=== PATIENT | male | born 1960 | race Caucasian/White ===

== ENCOUNTER 2024-08-16 22:15 | Inpatient (IN) | payer MEDICAID ==
[~2024-08-16] VITALS: Ht 167.6 cm; Wt 93.6 kg
[2024-08-16 22:31] VITALS: BP_SYST 125; PULSE 90; RESP 18; TEMP 98.4; O2SAT 98
[2024-08-16 22:55] LABS: BASOPHILS # (AUTO) 0.1 K/uL (0.0-0.2); BASOPHILS % (AUTO) 1.6 % (0.0-2.0); EOSINOPHILS # (AUTO) 0.2 K/uL (0.0-0.4); HEMATOCRIT 42.7 % (36-54); HEMOGLOBIN 14.8 g/dL (14.0-18.0); LYMPHOCYTES # (AUTO) 2.8 K/uL (1.0-5.5); LYMPHOCYTES % (AUTO) 36.5 % (20.5-51.5); MEAN CORPUSCULAR HEMOGLOBIN 28 pg (27-31); MEAN CORPUSCULAR HGB CONC 35 % (32-36); MEAN CORPUSCULAR VOLUME 82 fL (79.0-98.0); MONOCYTES # (AUTO) 0.6 K/uL (0.0-1.0); MONOCYTES % (AUTO) 7.8 % (1.7-9.3); NEUTROPHILS # (AUTO) 3.9 K/uL (1.8-7.7); NEUTROPHILS % (AUTO) 51.1 % (40.0-70.0); PLATELET COUNT (AUTO) 278 K/uL (130-430); RED BLOOD CELL COUNT(AUTO) 5.24 MIL/uL (4.2-6.2); RED CELL DISTRIBUTION WIDTH 12.2 % (9.0-15.0); WHITE BLOOD COUNT (AUTO) 7.7 K/uL (4.8-10.8)
[2024-08-16 23:08] LABS: ALANINE AMINOTRANSFERASE 19 U/L (12-78); ALBUMIN 3.5 g/dL (3.4-4.8); ANION GAP 9 (5-15); ASPARTATE AMINOTRANSFERASE 21 U/L (10-37); CALCIUM 9.1 mg/dL (8.4-11.0); CARBON DIOXIDE 28 mmol/L (23-29); CHLORIDE 107 mmol/L (98-107); CREATININE 1.07 mg/dL (0.55-1.30); GFR AFRICAN AMERICAN 90 mL/min (>90); GLUCOSE 134 mg/dL (74-106); SODIUM SERUM 144 mmol/L (136-145); TOTAL BILIRUBIN 0.4 mg/dL (0.0-1.0); TOTAL PROTEIN, SERUM 7.2 g/dL (6.4-8.3); UREA NITROGEN, BLOOD 15 mg/dL (8-21)
[2024-08-16 23:10] LABS: BILIRUBIN,DIRECT 0.1 mg/dL (0.0-0.3); GFR NON AFRICAN-AMERICAN 74 mL/min (>90)
[2024-08-16 23:31] LABS: BILIRUBIN,URINE NEGATIVE (NEGATIVE); BLOOD, URINE NEGATIVE (NEGATIVE); CLARITY/URINE CLEAR (CLEAR); COLOR,URINE YELLOW (YELLOW); GLUCOSE,URINE NEGATIVE (NEGATIVE); KETONES,URINE NEGATIVE (NEGATIVE); LEUKOCYTE ESTERASE ,URINE NEGATIVE (NEGATIVE); NITRITE, URINE NEGATIVE (NEGATIVE); PH,URINE 6.5 (5.0-8.0); PROTEIN URINE NEGATIVE (NEGATIVE); UROBILINOGEN,URINE 0.2 (0.2-1.0)
[2024-08-17] MEDS: KETOROLAC TROMETHAMINE 30 MG VIAL IVP ONE
[2024-08-17] MEDS: ATORVASTATIN 20 MG TABLET PO SCH (00:45)
[2024-08-17] MEDS: ASPIRIN 81 MG TAB.CHEW PO ONE (00:45)
[2024-08-17] MEDS: ASPIRIN 81 MG TAB.CHEW PO SCH (00:45)
[2024-08-17] MEDS: ATORVASTATIN 20 MG TABLET ONE (01:15)
[2024-08-17] MEDS ORDERED: ATOR-449 PO (01:24)
[2024-08-17 02:22] VITALS: BP_SYST 117; PULSE 68; RESP 18; TEMP 97.7; O2SAT 95
[2024-08-17] MEDS: HYDROcodone/ACETAMIN 10-325 MG TAB PO PRN (05:30)
[2024-08-17 08:00] VITALS: BP_SYST 114; PULSE 79; RESP 16; TEMP 97.3; O2SAT 97
[2024-08-17] MEDS ORDERED: IMMUNE GLOBULIN (IVIG) 400 ML IV PRN (09:00)
[2024-08-17] MEDS ORDERED: ATORVASTATIN 10 MG TABLET PO SCH (09:00)
[2024-08-17] MEDS: IMMUNE GLOBULIN (IVIG) 400 ML IV SCH (11:46)
[2024-08-17 12:00] VITALS: BP_SYST 123; BP_SYST 139; PULSE 76; PULSE 77; RESP 16; TEMP 97; TEMP 97.3; O2SAT 95; O2SAT 98
[2024-08-17 14:38] LABS: CHOLESTEROL 159 mg/dL (<200); HDL CHOLESTEROL 43 mg/dL (>45); TRIGLYCERIDES 111 mg/dL (30-150)
[2024-08-17 16:00] VITALS: BP_SYST 139; PULSE 76; RESP 16; TEMP 97; O2SAT 98
[2024-08-17] MEDS: LOSARTAN POTASSIUM 50 MG TABLET (COZAAR) PO ONE (16:01)
[2024-08-17 20:00] VITALS: BP_SYST 135; PULSE 72; RESP 16; TEMP 97.2; O2SAT 94
[2024-08-17] MEDS: GABAPENTIN 300 MG CAPSULE PO SCH (20:29)
[2024-08-17] MEDS: LOSARTAN POTASSIUM 50 MG TABLET (COZAAR) PO SCH (20:30)
[2024-08-17] MEDS: ONDANSETRON HCL 4 MG/2 ML VIAL IVP PRN (20:40)
[2024-08-17] MEDS: MORPHINE 2 MG/ML INJ. SYRINGE IVP PRN (22:35)
[2024-08-18] VITALS (7 sets, daily range): BP systolic 121–147; PULSE 69–85; RESP 18–20; TEMP 97.1–98.5; O2SAT 93–98
[2024-08-18] MEDS: ASPIRIN 81 MG TAB.CHEW PO SCH (08:41)
[2024-08-18] MEDS: ACETAMINOPHEN 325 MG TABLET PO PRN (20:43)
[2024-08-18] MEDS: HEPARIN SODIUM,PORCINE 5,000 UNITS/ML VIAL SUBCUT SCH (20:45)
[2024-08-18] MEDS: POLYETHYLENE GLYCOL 3350, 17 GM/ POWD.PACK PO ONE (20:47)
[2024-08-19] VITALS (7 sets, daily range): BP systolic 126–136; PULSE 78–92; RESP 16–18; TEMP 96.5–98.6; O2SAT 92–100
[2024-08-19] MEDS: POLYETHYLENE GLYCOL 3350, 17 GM/ POWD.PACK PO SCH ×2 (08:24→20:48)
[2024-08-19] MEDS ORDERED: IBUPROFEN 600 MG TABLET PO PRN (11:00)
[2024-08-19] MEDS: LORazepam 2 MG/ML VIAL IVP ONE (18:10)
[2024-08-19 19:07] LABS: BASOPHILS # (AUTO) 0.1 K/uL (0.0-0.2); BASOPHILS % (AUTO) 0.4 % (0.0-2.0); EOSINOPHILS % (AUTO) 0.1 % (0.0-4.0); HEMATOCRIT 40.5 % (36-54); LYMPHOCYTES # (AUTO) 0.7 K/uL (1.0-5.5); LYMPHOCYTES % (AUTO) 6.2 % (20.5-51.5); MEAN CORPUSCULAR HEMOGLOBIN 28 pg (27-31); MEAN CORPUSCULAR HGB CONC 35 % (32-36); MEAN CORPUSCULAR VOLUME 81 fL (79.0-98.0); MONOCYTES # (AUTO) 0.9 K/uL (0.0-1.0); MONOCYTES % (AUTO) 7.9 % (1.7-9.3); NEUTROPHILS % (AUTO) 85.4 % (40.0-70.0); PLATELET COUNT (AUTO) 236 K/uL (130-430); RED CELL DISTRIBUTION WIDTH 12.6 % (9.0-15.0); WHITE BLOOD COUNT (AUTO) 11.7 K/uL (4.8-10.8)
[2024-08-19 20:28] LABS: CALCIUM 8.6 mg/dL (8.4-11.0); CREATININE 0.89 mg/dL (0.55-1.30); POTASSIUM 4.2 mmol/L (3.5-5.1); TOTAL BILIRUBIN 0.8 mg/dL (0.0-1.0); TOTAL PROTEIN, SERUM 8.4 g/dL (6.4-8.3)
[2024-08-20 00:30] VITALS: BP_SYST 146; PULSE 85; RESP 16; TEMP 98.4; O2SAT 97
[2024-08-20] MEDS: MORPHINE 2 MG/ML INJ. SYRINGE IVP ONE (03:55)
[2024-08-20] MEDS: METOCLOPRAMIDE HCL 10 MG TABLET PO PRN (05:45)
[2024-08-20] MEDS: IBUPROFEN 600 MG TABLET PO ONE (05:46)
[2024-08-20 08:00] VITALS: BP_SYST 136; PULSE 86; RESP 22; TEMP 98.1; O2SAT 97
[2024-08-20] MEDS: PANTOPRAZOLE SODIUM 40 MG TAB PO SCH (08:29)
[2024-08-20] MEDS ORDERED: KETOROLAC TROMETHAMINE 30 MG VIAL IVP PRN (08:45)
[2024-08-20] MEDS ORDERED: PANTOPRAZOLE SODIUM 40 MG/VIAL (PROTONIX) IVP PRN (08:45)
[2024-08-20] MEDS: KETOROLAC TROMETHAMINE 30 MG VIAL IM PRN (09:30)
[2024-08-20 09:39] LABS: BASOPHILS % (AUTO) 0.4 % (0.0-2.0); EOSINOPHILS % (AUTO) 0.1 % (0.0-4.0); HEMATOCRIT 45.1 % (36-54); HEMOGLOBIN 15.4 g/dL (14.0-18.0); LYMPHOCYTES # (AUTO) 1.1 K/uL (1.0-5.5); LYMPHOCYTES % (AUTO) 10.7 % (20.5-51.5); MEAN CORPUSCULAR HEMOGLOBIN 28 pg (27-31); MEAN CORPUSCULAR HGB CONC 34 % (32-36); MEAN CORPUSCULAR VOLUME 82 fL (79.0-98.0); MONOCYTES # (AUTO) 0.8 K/uL (0.0-1.0); MONOCYTES % (AUTO) 7.5 % (1.7-9.3); NEUTROPHILS # (AUTO) 8.5 K/uL (1.8-7.7); NEUTROPHILS % (AUTO) 81.3 % (40.0-70.0); PLATELET COUNT (AUTO) 240 K/uL (130-430); RED BLOOD CELL COUNT(AUTO) 5.53 MIL/uL (4.2-6.2); RED CELL DISTRIBUTION WIDTH 12.2 % (9.0-15.0); WHITE BLOOD COUNT (AUTO) 10.4 K/uL (4.8-10.8)
[2024-08-20 10:15] LABS: ALBUMIN 3.4 g/dL (3.4-4.8); CALCIUM 9.3 mg/dL (8.4-11.0); CREATININE 0.83 mg/dL (0.55-1.30); POTASSIUM 4.2 mmol/L (3.5-5.1); TOTAL BILIRUBIN 1.1 mg/dL (0.0-1.0); TOTAL PROTEIN, SERUM 9.6 g/dL (6.4-8.3)
[2024-08-20] MEDS: LORazepam 2 MG/ML VIAL IVP PRN (11:09)
[2024-08-20 12:57] VITALS: BP_SYST 146; PULSE 79; RESP 22; TEMP 97.5; O2SAT 95
[2024-08-20 13:25] LABS: BLOOD GAS HCO3 25.9 mmol/L (21.0-28.0); BLOOD GAS PCO2 39.8 mmHg (35.0-48.0); BLOOD GAS PH 7.432 (7.350-7.450)
[2024-08-20 13:26] LABS: ABG O2 SAT% ESTIMATE 95.2 % (94.0-98.0); ALLEN'S TEST POSITIVE (P); BLOOD GAS BASE EXCESS 1.6 mmol/L (-2.0-3.0); BLOOD GAS PO2 73.3 mmHg (83.0-108.0)
[2024-08-20] MEDS ORDERED: MORPHINE 2 MG/ML INJ. SYRINGE IVP PRN (16:15)
[2024-08-20 16:44] VITALS: BP_SYST 136; PULSE 76; RESP 18; TEMP 98; O2SAT 98
[2024-08-20] MEDS: HYDROmorphone 2 MG TAB PO PRN (17:24)
[2024-08-20 17:50] LABS: FREE T4 (FREE THYROXINE) 1.3 ng/dl (0.8-1.5); THYROID STIMULATING HORMONE 1.43 uIu/mL (0.36-3.74)
[2024-08-20 18:32] LABS: INR 1.1 (0.80-1.20); PROTHROMBIN TIME 11.3 SECS (9.5-12.5)
[2024-08-20 20:00] VITALS: BP_SYST 123; PULSE 79; RESP 18; TEMP 98.4; O2SAT 95
[2024-08-20] MEDS ORDERED: NALOXONE HCL 0.4 MG/ML AMP (NARCAN) IVP PRN (20:15)
[2024-08-20] MEDS: HYDROmorphone 1 MG/ML INJ. CARTRIDGE IM PRN (20:24)
[2024-08-20] MEDS ORDERED: PREGABALIN 25 MG CAPSULE (LYRICA) PO SCH (21:00)
[2024-08-20] MEDS: HEPARIN SODIUM,PORCINE 5,000 UNITS/ML VIAL IV ONE (21:22)
[2024-08-20] MEDS: PREGABALIN 25 MG CAPSULE (LYRICA) PO SCH (21:30)
[2024-08-21] VITALS (7 sets, daily range): BP systolic 87–149; PULSE 66–133; RESP 16–20; TEMP 96.3–98.5; O2SAT 91–98
[2024-08-21] MEDS ORDERED: NALOXONE HCL 0.4 MG/ML AMP (NARCAN) IVP PRN
[2024-08-21] MEDS: HYDROmorphone 1 MG/ML INJ. CARTRIDGE IVP PRN (00:05)
[2024-08-21] MEDS: KETOROLAC TROMETHAMINE 30 MG VIAL IVP PRN (01:36)
[2024-08-21] MEDS: PANTOPRAZOLE SODIUM 40 MG/VIAL (PROTONIX) IVP PRN (01:36)
[2024-08-21] MEDS: MINERAL OIL 133 ML ENEMA RC ONE (06:37)
[2024-08-21 10:31] LABS: POTASSIUM 4.4 mmol/L (3.5-5.1)
[2024-08-21 10:32] LABS: ALBUMIN 2.9 g/dL (3.4-4.8); CALCIUM 9.5 mg/dL (8.4-11.0); CREATININE 0.94 mg/dL (0.55-1.30); TOTAL BILIRUBIN 1.5 mg/dL (0.0-1.0); TOTAL PROTEIN, SERUM 9.4 g/dL (6.4-8.3)
[2024-08-21 10:33] LABS: BASOPHILS % (AUTO) 0.2 % (0.0-2.0); EOSINOPHILS % (AUTO) 0.1 % (0.0-4.0); HEMATOCRIT 42.3 % (36-54); HEMOGLOBIN 14.5 g/dL (14.0-18.0); LYMPHOCYTES # (AUTO) 0.8 K/uL (1.0-5.5); LYMPHOCYTES % (AUTO) 6.3 % (20.5-51.5); MEAN CORPUSCULAR HEMOGLOBIN 28 pg (27-31); MEAN CORPUSCULAR HGB CONC 34 % (32-36); MEAN CORPUSCULAR VOLUME 81 fL (79.0-98.0); MONOCYTES % (AUTO) 8.1 % (1.7-9.3); NEUTROPHILS # (AUTO) 10.6 K/uL (1.8-7.7); NEUTROPHILS % (AUTO) 85.3 % (40.0-70.0); PLATELET COUNT (AUTO) 263 K/uL (130-430); RED BLOOD CELL COUNT(AUTO) 5.22 MIL/uL (4.2-6.2); RED CELL DISTRIBUTION WIDTH 12.3 % (9.0-15.0); WHITE BLOOD COUNT (AUTO) 12.5 K/uL (4.8-10.8)
[2024-08-21] MEDS: NS IV ONE (11:13)
[2024-08-21] MEDS: CALCIUM GLUCONATE IV ONE (11:13)
[2024-08-21] MEDS: MINERAL OIL 30 ML UDC PO ONE (11:15)
[2024-08-21] MEDS ORDERED: OLANZapine 10 MG TABLET PO PRN (11:45)
[2024-08-21] MEDS: ALBUMIN HUMAN 5% 3,000 ML IV ONE (12:03)
[2024-08-21] MEDS: hydrALAZINE HCL 20 MG/ML VIAL IVP PRN (13:07)
[2024-08-21] MEDS: ENOXAPARIN SODIUM 40 MG/0.4 ML SYRINGE SUBCUT ONE (18:05)
[2024-08-21] MEDS ORDERED: NACL 0.9% 1,000 ML IV ONE (22:30)
[2024-08-21] MEDS: NACL 0.9% 1,000 ML IV ONE (22:55)
[2024-08-21] MEDS: NACL 0.9% 1,000 ML IV SCH (23:54)
[2024-08-22] VITALS (7 sets, daily range): BP systolic 125–147; PULSE 83–127; RESP 16–19; TEMP 97.5–98.3; O2SAT 91–97
[2024-08-22 01:28] LABS: BASOPHILS % (AUTO) 0.1 % (0.0-2.0); HEMATOCRIT 35.6 % (36-54); HEMOGLOBIN 12.3 g/dL (14.0-18.0); LYMPHOCYTES # (AUTO) 1.2 K/uL (1.0-5.5); LYMPHOCYTES % (AUTO) 5.6 % (20.5-51.5); MEAN CORPUSCULAR HEMOGLOBIN 28 pg (27-31); MEAN CORPUSCULAR HGB CONC 35 % (32-36); MEAN CORPUSCULAR VOLUME 81 fL (79.0-98.0); MONOCYTES # (AUTO) 1.4 K/uL (0.0-1.0); MONOCYTES % (AUTO) 6.6 % (1.7-9.3); NEUTROPHILS % (AUTO) 87.7 % (40.0-70.0); PLATELET COUNT (AUTO) 290 K/uL (130-430); RED BLOOD CELL COUNT(AUTO) 4.39 MIL/uL (4.2-6.2); RED CELL DISTRIBUTION WIDTH 12.3 % (9.0-15.0); WHITE BLOOD COUNT (AUTO) 21.7 K/uL (4.8-10.8)
[2024-08-22 01:36] LABS: ALBUMIN 3.5 g/dL (3.4-4.8); CALCIUM 8.7 mg/dL (8.4-11.0); CREATININE 1.51 mg/dL (0.55-1.30); POTASSIUM 4.8 mmol/L (3.5-5.1); TOTAL BILIRUBIN 1.3 mg/dL (0.0-1.0); TOTAL PROTEIN, SERUM 6.4 g/dL (6.4-8.3)
[2024-08-22] MEDS ORDERED: ALBUMIN HUMAN 5% 250 ML IV SCH (09:00)
[2024-08-22] MEDS ORDERED: CALCIUM GLUCONATE 1 GM/10 ML VIAL IVP SCH ×2 (09:00)
[2024-08-22] MEDS: ALBUMIN HUMAN 5% 3,000 ML IV SCH (09:00)
[2024-08-22] MEDS: NS IV SCH (09:00)
[2024-08-22] MEDS ORDERED: CALCIUM GLUCONATE 1 GM/10 ML VIAL IVP ONE (09:00)
[2024-08-22] MEDS: CALCIUM GLUCONATE IV SCH (09:00)
[2024-08-22] MEDS ORDERED: ALBUMIN HUMAN 5% 1,000 ML IV SCH (09:00)
[2024-08-22] MEDS: ENOXAPARIN SODIUM 40 MG/0.4 ML SYRINGE SUBCUT SCH (09:41)
[2024-08-22 12:11] LABS: BILIRUBIN,URINE NEGATIVE (NEGATIVE); CLARITY/URINE CLEAR (CLEAR); COLOR,URINE YELLOW (YELLOW); GLUCOSE,URINE NEGATIVE (NEGATIVE); KETONES,URINE NEGATIVE (NEGATIVE); LEUKOCYTE ESTERASE ,URINE 1+ (NEGATIVE); NITRITE, URINE POSITIVE (NEGATIVE); PH,URINE 5.5 (5.0-8.0); PROTEIN URINE TRACE (NEGATIVE)
[2024-08-22] MEDS ORDERED: MORPHINE 2 MG/ML INJ. SYRINGE IVP PRN (12:15)
[2024-08-22 12:18] LABS: BLOOD, URINE TRACE (NEGATIVE)
[2024-08-22 12:35] LABS: BACTERIA,URINE MODERATE /HPF (None Seen); HYALINE CASTS, URINE 0-1 /LPF (None Seen)
[2024-08-22 12:46] LABS: BARBITURATE, URINE NEGATIVE (NEG <=200); BENZODIAZEPINE, URINE POSITIVE (NEG <=150); CANNABINOID, URINE NEGATIVE (NEG <=50); COCAINE, URINE NEGATIVE (NEG <=150); METHAMPHETAMINES SCREEN,URINE NEGATIVE (NEG <=500); OPIATE, URINE POSITIVE (NEG <=100); PHENCYCLIDINE SCREEN,URINE NEGATIVE (NEG <=25); URINE AMPHETAMINE NEGATIVE (NEG <=500); URINE METHADONE NEGATIVE (NEG <=200); URINE OXYCODONE SCREEN NEGATIVE (NEG <=100)
[2024-08-22 12:47] LABS: UR TRICYCLIC ANTIDEPRESSANTS NEGATIVE (NEG <=300)
[2024-08-22] MEDS ORDERED: HYDROmorphone 1 MG/ML INJ. CARTRIDGE IM PRN (16:45)
[2024-08-22] MEDS ORDERED: NALOXONE HCL 0.4 MG/ML AMP (NARCAN) IVP PRN (16:45)
[2024-08-22] MEDS: HYDROmorphone 1 MG/ML INJ. CARTRIDGE IV PRN (17:21)
[2024-08-22] MEDS: SODIUM PHOSPHATE,MONO-DIBASIC 133 ML ENEMA RC ONE (17:21)
[2024-08-22] MEDS: GABAPENTIN 400 MG CAPSULE PO SCH (20:14)
[2024-08-22 23:06] LABS: RA LATEX TURBID 14.2 IU/mL (<14.0)
[2024-08-23] VITALS: BP_SYST 109; PULSE 130; RESP 18; TEMP 98.2; O2SAT 92
[2024-08-23 08:00] VITALS: BP_SYST 159; PULSE 124; RESP 20; TEMP 98.4; O2SAT 91; O2SAT 93
[2024-08-23] MEDS: CALCIUM GLUCONATE IV SCH (09:00)
[2024-08-23] MEDS: NS IV SCH (09:00)
[2024-08-23 11:49] LABS: BASOPHILS # (AUTO) 0.1 K/uL (0.0-0.2); BASOPHILS % (AUTO) 0.4 % (0.0-2.0); EOSINOPHILS % (AUTO) 0.3 % (0.0-4.0); HEMOGLOBIN 9.5 g/dL (14.0-18.0); LYMPHOCYTES # (AUTO) 1.2 K/uL (1.0-5.5)
[2024-08-23 11:55] LABS: HEMATOCRIT 27.6 % (36-54); LYMPHOCYTES % (AUTO) 7.7 % (20.5-51.5); MEAN CORPUSCULAR HEMOGLOBIN 28 pg (27-31); MEAN CORPUSCULAR HGB CONC 35 % (32-36); MEAN CORPUSCULAR VOLUME 81 fL (79.0-98.0); MONOCYTES % (AUTO) 12.6 % (1.7-9.3); NEUTROPHILS # (AUTO) 12.3 K/uL (1.8-7.7); PLATELET COUNT (AUTO) 291 K/uL (130-430); RED CELL DISTRIBUTION WIDTH 12.4 % (9.0-15.0); WHITE BLOOD COUNT (AUTO) 15.6 K/uL (4.8-10.8)
[2024-08-23 12:02] VITALS: BP_SYST 132; PULSE 119; RESP 25; TEMP 98; O2SAT 95
[2024-08-23 12:19] LABS: ALBUMIN 3.2 g/dL (3.4-4.8); CALCIUM 8.4 mg/dL (8.4-11.0); CREATININE 0.85 mg/dL (0.55-1.30); TOTAL BILIRUBIN 0.7 mg/dL (0.0-1.0); TOTAL PROTEIN, SERUM 6.7 g/dL (6.4-8.3)
[2024-08-23] MEDS: ALBUMIN HUMAN 5% 3,000 ML IV SCH (12:40)
[2024-08-23] MEDS: KETOROLAC TROMETHAMINE 30 MG VIAL IVP PRN (14:15)
[2024-08-23 16:24] VITALS: BP_SYST 151; PULSE 114; RESP 24; TEMP 98.1; O2SAT 97
[2024-08-23 17:47] LABS: ALBUMIN 4.2 g/dL (3.4-4.8); CALCIUM 8.3 mg/dL (8.4-11.0); CREATININE 0.88 mg/dL (0.55-1.30)
[2024-08-23 20:00] VITALS: BP_SYST 125; PULSE 119; RESP 20; TEMP 96.8; O2SAT 94
[2024-08-24] VITALS (28 sets, daily range): BP systolic 121–160; PULSE 111–132; RESP 13–32; TEMP 96.6–99.1; O2SAT 94–100
[2024-08-24 07:36] LABS: BASOPHILS % (AUTO) 0.1 % (0.0-2.0); EOSINOPHILS % (AUTO) 0.2 % (0.0-4.0); HEMATOCRIT 27.5 % (36-54); HEMOGLOBIN 9.5 g/dL (14.0-18.0); LYMPHOCYTES # (AUTO) 1.1 K/uL (1.0-5.5); LYMPHOCYTES % (AUTO) 8.2 % (20.5-51.5); MEAN CORPUSCULAR HEMOGLOBIN 28 pg (27-31); MEAN CORPUSCULAR HGB CONC 35 % (32-36); MEAN CORPUSCULAR VOLUME 81 fL (79.0-98.0); MONOCYTES # (AUTO) 1.5 K/uL (0.0-1.0); MONOCYTES % (AUTO) 10.5 % (1.7-9.3); NEUTROPHILS # (AUTO) 11.3 K/uL (1.8-7.7); PLATELET COUNT (AUTO) 257 K/uL (130-430); RED CELL DISTRIBUTION WIDTH 12.6 % (9.0-15.0)
[2024-08-24 07:56] LABS: ALBUMIN 3.7 g/dL (3.4-4.8); CALCIUM 8.7 mg/dL (8.4-11.0); CREATININE 0.78 mg/dL (0.55-1.30); POTASSIUM 3.8 mmol/L (3.5-5.1); TOTAL BILIRUBIN 1.1 mg/dL (0.0-1.0); TOTAL PROTEIN, SERUM 5.8 g/dL (6.4-8.3)
[2024-08-24 10:24] LABS: ABG O2 SAT% ESTIMATE 97.7 % (94.0-98.0); BLOOD GAS BASE EXCESS 1.6 mmol/L (-2.0-3.0); BLOOD GAS HCO3 24.4 mmol/L (21.0-28.0); BLOOD GAS PCO2 31.8 mmHg (35.0-48.0); BLOOD GAS PH 7.503 (7.350-7.450); BLOOD GAS PO2 91.5 mmHg (83.0-108.0)
[2024-08-24 10:31] LABS: ALLEN'S TEST POSITIVE (P)
[2024-08-24 11:44] LABS: BASOPHILS % (AUTO) 0.2 % (0.0-2.0); EOSINOPHILS % (AUTO) 0.3 % (0.0-4.0); HEMATOCRIT 27.1 % (36-54); HEMOGLOBIN 9.3 g/dL (14.0-18.0); LYMPHOCYTES # (AUTO) 1.6 K/uL (1.0-5.5); LYMPHOCYTES % (AUTO) 11.1 % (20.5-51.5); MEAN CORPUSCULAR HEMOGLOBIN 28 pg (27-31); MEAN CORPUSCULAR HGB CONC 34 % (32-36); MEAN CORPUSCULAR VOLUME 81 fL (79.0-98.0); MONOCYTES # (AUTO) 1.4 K/uL (0.0-1.0); MONOCYTES % (AUTO) 9.9 % (1.7-9.3); NEUTROPHILS # (AUTO) 11.1 K/uL (1.8-7.7); NEUTROPHILS % (AUTO) 78.5 % (40.0-70.0); PLATELET COUNT (AUTO) 263 K/uL (130-430); RED BLOOD CELL COUNT(AUTO) 3.36 MIL/uL (4.2-6.2); RED CELL DISTRIBUTION WIDTH 12.5 % (9.0-15.0); WHITE BLOOD COUNT (AUTO) 14.2 K/uL (4.8-10.8)
[2024-08-24] MEDS: OXYCODONE/ACETAMINOPHEN *10*mg/325 mg TABLET PO PRN (13:27)
[2024-08-24] MEDS ORDERED: iohexoL 350 mgI/mL, 100 ML INFUS..BTL IV ONE (14:16)
[2024-08-24] MEDS: PIPERACILLIN/TAZO 4.5 GM in NS 100 ML IV SCH (21:33)
[2024-08-24] MEDS: MELATONIN 5 MG TABLET PO PRN (23:20)
[2024-08-25] VITALS (35 sets, daily range): BP systolic 124–178; PULSE 104–126; RESP 14–33; TEMP 96.1–100.5; O2SAT 95–100
[2024-08-25 06:24] LABS: BASOPHILS # (AUTO) 0.1 K/uL (0.0-0.2); BASOPHILS % (AUTO) 0.5 % (0.0-2.0); EOSINOPHILS % (AUTO) 0.4 % (0.0-4.0); HEMATOCRIT 27.5 % (36-54); HEMOGLOBIN 9.3 g/dL (14.0-18.0); LYMPHOCYTES # (AUTO) 1.9 K/uL (1.0-5.5); LYMPHOCYTES % (AUTO) 15.9 % (20.5-51.5); MEAN CORPUSCULAR HEMOGLOBIN 27 pg (27-31); MEAN CORPUSCULAR HGB CONC 34 % (32-36); MEAN CORPUSCULAR VOLUME 82 fL (79.0-98.0); MONOCYTES # (AUTO) 1.4 K/uL (0.0-1.0); MONOCYTES % (AUTO) 11.5 % (1.7-9.3); NEUTROPHILS # (AUTO) 8.7 K/uL (1.8-7.7); NEUTROPHILS % (AUTO) 71.7 % (40.0-70.0); PLATELET COUNT (AUTO) 281 K/uL (130-430); RED BLOOD CELL COUNT(AUTO) 3.38 MIL/uL (4.2-6.2); RED CELL DISTRIBUTION WIDTH 12.6 % (9.0-15.0); WHITE BLOOD COUNT (AUTO) 12.2 K/uL (4.8-10.8)
[2024-08-25 06:50] LABS: ALBUMIN 3.3 g/dL (3.4-4.8); CALCIUM 8.8 mg/dL (8.4-11.0); CREATININE 0.81 mg/dL (0.55-1.30); POTASSIUM 3.4 mmol/L (3.5-5.1); TOTAL BILIRUBIN 1.4 mg/dL (0.0-1.0)
[2024-08-25] MEDS: NACL 0.9% 1,000 ML IV SCH (08:00)
[2024-08-25 10:31] LABS: ABG O2 SAT% ESTIMATE 94.9 % (94.0-98.0); ALLEN'S TEST POSITIVE (P); BLOOD GAS HCO3 26.5 mmol/L (21.0-28.0); BLOOD GAS PCO2 32.7 mmHg (35.0-48.0); BLOOD GAS PH 7.527 (7.350-7.450); BLOOD GAS PO2 65.1 mmHg (83.0-108.0)
[2024-08-25] MEDS: metroNIDAZOLE 500 mg/NS 100 ML IV SCH (13:22)
[2024-08-25] MEDS: 0.45% NACL 1,000 ML IV SCH (15:54)
[2024-08-25] MEDS: CALCIUM GLUCONATE IV ONE (21:20)
[2024-08-25] MEDS: NS IV ONE (21:20)
[2024-08-25] MEDS: ACETAMINOPHEN 650 MG/20.3 ML UDC NG PRN (21:23)
[2024-08-26] VITALS (32 sets, daily range): BP systolic 130–172; PULSE 84–116; RESP 12–31; TEMP 98.6–99.9; O2SAT 92–99
[2024-08-26] MEDS: METHYLPREDNISOLONE SOD SUCC IV SCH
[2024-08-26 06:57] LABS: BASOPHILS % (AUTO) 0.3 % (0.0-2.0); EOSINOPHILS % (AUTO) 0.2 % (0.0-4.0); HEMOGLOBIN 8.8 g/dL (14.0-18.0); LYMPHOCYTES # (AUTO) 0.8 K/uL (1.0-5.5); LYMPHOCYTES % (AUTO) 8.1 % (20.5-51.5); MEAN CORPUSCULAR HEMOGLOBIN 28 pg (27-31); MEAN CORPUSCULAR HGB CONC 34 % (32-36); MEAN CORPUSCULAR VOLUME 82 fL (79.0-98.0); MONOCYTES # (AUTO) 0.3 K/uL (0.0-1.0); MONOCYTES % (AUTO) 3.4 % (1.7-9.3); NEUTROPHILS # (AUTO) 8.7 K/uL (1.8-7.7); PLATELET COUNT (AUTO) 263 K/uL (130-430); RED BLOOD CELL COUNT(AUTO) 3.16 MIL/uL (4.2-6.2); RED CELL DISTRIBUTION WIDTH 12.7 % (9.0-15.0); WHITE BLOOD COUNT (AUTO) 9.9 K/uL (4.8-10.8)
[2024-08-26 07:44] LABS: ALBUMIN 3.2 g/dL (3.4-4.8); CALCIUM 8.6 mg/dL (8.4-11.0); CREATININE 0.76 mg/dL (0.55-1.30); POTASSIUM 3.8 mmol/L (3.5-5.1)
[2024-08-26] MEDS: COMMUNICATION ORDER XX ONE (09:29)
[2024-08-26] MEDS: ALTEPLASE 2 MG VIAL MC ONE (12:25)
[2024-08-26] MEDS: METOPROLOL TARTRATE 25 MG TABLET PO ONE (14:21)
[2024-08-26] MEDS: CALCIUM GLUCONATE IV SCH (14:38)
[2024-08-26] MEDS: NS IV SCH ×2 (14:38)
[2024-08-26] MEDS: HEPARIN SODIUM, PORCINE 10,000 UNITS/ 10 ML VIAL MC ONE (16:00)
[2024-08-26] MEDS: METOPROLOL TARTRATE 25 MG TABLET PO SCH (21:55)
[2024-08-27] VITALS (33 sets, daily range): BP systolic 127–161; PULSE 74–101; RESP 10–28; TEMP 98.1–99.1; O2SAT 93–99
[2024-08-27 06:43] LABS: BASOPHILS % (AUTO) 0.3 % (0.0-2.0); EOSINOPHILS % (AUTO) 0.2 % (0.0-4.0); HEMATOCRIT 25.9 % (36-54); HEMOGLOBIN 8.7 g/dL (14.0-18.0); LYMPHOCYTES # (AUTO) 2.3 K/uL (1.0-5.5); LYMPHOCYTES % (AUTO) 19.5 % (20.5-51.5); MEAN CORPUSCULAR HEMOGLOBIN 28 pg (27-31); MEAN CORPUSCULAR HGB CONC 34 % (32-36); MEAN CORPUSCULAR VOLUME 82 fL (79.0-98.0); MONOCYTES # (AUTO) 1.2 K/uL (0.0-1.0); MONOCYTES % (AUTO) 9.8 % (1.7-9.3); NEUTROPHILS # (AUTO) 8.3 K/uL (1.8-7.7); NEUTROPHILS % (AUTO) 70.2 % (40.0-70.0); PLATELET COUNT (AUTO) 284 K/uL (130-430); RED BLOOD CELL COUNT(AUTO) 3.15 MIL/uL (4.2-6.2); RED CELL DISTRIBUTION WIDTH 12.6 % (9.0-15.0); WHITE BLOOD COUNT (AUTO) 11.9 K/uL (4.8-10.8)
[2024-08-27 07:26] LABS: ERYTHROCYTE SEDIMENTATION RATE < 1 MM/HR (0-15)
[2024-08-27 07:46] LABS: CALCIUM 8.5 mg/dL (8.4-11.0); CREATININE 0.7 mg/dL (0.55-1.30); POTASSIUM 3.4 mmol/L (3.5-5.1)
[2024-08-27] MEDS: HYDROcodone/ACETAMIN 10-325 MG TAB PO PRN (09:05)
[2024-08-27] MEDS: ENOXAPARIN SODIUM 40 MG/0.4 ML SYRINGE SUBCUT SCH (09:49)
[2024-08-27] MEDS: POTASSIUM CHLORIDE 20 MEQ/PKT PACKET PO ONE (10:48)
[2024-08-27] MEDS: KETOROLAC TROMETHAMINE 15 MG VIAL IM PRN ×2 (11:08→16:05)
[2024-08-27 13:07] LABS: ANTI-DNA(DS) AB, QN <1 IU/mL (0-9); ANTI-NUCLEAR AB DIRECT Negative (Negative); ANTISCLERODERMA-70 AB <0.2 AI (0.0-0.9); SMITH ABS <0.2 AI (0.0-0.9)
[2024-08-27 14:06] LABS: WEST NILE VIRUS, IgG, SERUM Negative (Negative)
[2024-08-27] MEDS: LIDOCAINE PATCH 5% 1 EA TP ONE (16:05)
[2024-08-27] MEDS: HYDROmorphone 2 MG/ML VIAL IVP PRN (18:31)
[2024-08-27] MEDS: HYDROmorphone 2 MG/ML VIAL ONE (18:34)
[2024-08-27] MEDS: METOPROLOL SUCCINATE 50 MG TAB.SR.24H (TOPROL XL) PO ONE (18:34)
[2024-08-28] VITALS (31 sets, daily range): BP systolic 117–161; PULSE 15–92; RESP 11–30; TEMP 97.6–98.9; O2SAT 13–98
[2024-08-28 01:06] LABS: THYROID PEROXIDASE (TPO) AB 15 IU/mL (0-34)
[2024-08-28 02:06] LABS: COMPLEMENT C4, SERUM 16 mg/dL (12-38)
[2024-08-28 06:52] LABS: PROTHROMBIN TIME 10.8 SECS (9.5-12.5)
[2024-08-28 06:59] LABS: BASOPHILS % (AUTO) 0.4 % (0.0-2.0); EOSINOPHILS # (AUTO) 0.2 K/uL (0.0-0.4); EOSINOPHILS % (AUTO) 1.2 % (0.0-4.0); HEMATOCRIT 28.3 % (36-54); HEMOGLOBIN 9.3 g/dL (14.0-18.0); LYMPHOCYTES # (AUTO) 2.1 K/uL (1.0-5.5); LYMPHOCYTES % (AUTO) 16.7 % (20.5-51.5); MEAN CORPUSCULAR HEMOGLOBIN 27 pg (27-31); MEAN CORPUSCULAR HGB CONC 33 % (32-36); MEAN CORPUSCULAR VOLUME 83 fL (79.0-98.0); MONOCYTES # (AUTO) 1.4 K/uL (0.0-1.0); NEUTROPHILS % (AUTO) 70.7 % (40.0-70.0); PLATELET COUNT (AUTO) 309 K/uL (130-430); RED BLOOD CELL COUNT(AUTO) 3.42 MIL/uL (4.2-6.2); RED CELL DISTRIBUTION WIDTH 12.8 % (9.0-15.0); WHITE BLOOD COUNT (AUTO) 12.7 K/uL (4.8-10.8)
[2024-08-28 07:19] LABS: ALBUMIN 3.4 g/dL (3.4-4.8); CALCIUM 8.2 mg/dL (8.4-11.0); CREATININE 0.68 mg/dL (0.55-1.30); POTASSIUM 4.2 mmol/L (3.5-5.1); TOTAL BILIRUBIN 0.8 mg/dL (0.0-1.0); TOTAL PROTEIN, SERUM 5.3 g/dL (6.4-8.3)
[2024-08-28] MEDS: LIDOCAINE PATCH 5% 1 EA TP SCH (09:00)
[2024-08-28] MEDS: METOPROLOL SUCCINATE 50 MG TAB.SR.24H (TOPROL XL) PO SCH (09:06)
[2024-08-28] MEDS: ALBUMIN HUMAN 5% 1,000 ML IV SCH (09:11)
[2024-08-28] MEDS ORDERED: COMMUNICATION ORDER XX ONE (10:45)
[2024-08-28] MEDS ORDERED: CALCIUM GLUCONATE 1 GM/10 ML VIAL IVP ONE (10:45)
[2024-08-28] MEDS: ALBUMIN HUMAN 5% 3,000 ML IV ONE (12:24)
[2024-08-28] MEDS: CALCIUM GLUCONATE IV ONE (12:26)
[2024-08-28] MEDS: NS IV ONE (12:26)
[2024-08-28] MEDS ORDERED: ALPRAZolam 0.25 MG TABLET PO PRN (13:15)
[2024-08-28] MEDS ORDERED: DOCUSATE SODIUM 100 MG CAPSULE PO PRN (20:00)
[2024-08-28 20:17] LABS: ALBUMIN 4.4 g/dL (3.4-4.8); CALCIUM 8.3 mg/dL (8.4-11.0); CREATININE 0.74 mg/dL (0.55-1.30); POTASSIUM 4.3 mmol/L (3.5-5.1); TOTAL BILIRUBIN 1.2 mg/dL (0.0-1.0); TOTAL PROTEIN, SERUM 5.4 g/dL (6.4-8.3)
[2024-08-28] MEDS: DOCUSATE SODIUM 100 MG CAPSULE PO PRN (20:20)
[2024-08-28 20:21] LABS: BASOPHILS % (AUTO) 0.2 % (0.0-2.0); EOSINOPHILS # (AUTO) 0.2 K/uL (0.0-0.4); EOSINOPHILS % (AUTO) 1.3 % (0.0-4.0); HEMATOCRIT 30.4 % (36-54); HEMOGLOBIN 10.5 g/dL (14.0-18.0); LYMPHOCYTES # (AUTO) 2.1 K/uL (1.0-5.5); LYMPHOCYTES % (AUTO) 12.9 % (20.5-51.5); MEAN CORPUSCULAR HEMOGLOBIN 29 pg (27-31); MEAN CORPUSCULAR HGB CONC 35 % (32-36); MEAN CORPUSCULAR VOLUME 82 fL (79.0-98.0); MONOCYTES # (AUTO) 1.4 K/uL (0.0-1.0); MONOCYTES % (AUTO) 8.8 % (1.7-9.3); NEUTROPHILS # (AUTO) 12.4 K/uL (1.8-7.7); NEUTROPHILS % (AUTO) 76.8 % (40.0-70.0); PLATELET COUNT (AUTO) 304 K/uL (130-430); RED CELL DISTRIBUTION WIDTH 12.6 % (9.0-15.0); WHITE BLOOD COUNT (AUTO) 16.2 K/uL (4.8-10.8)
[2024-08-28 20:38] LABS: INR 1.2 (0.80-1.20); PROTHROMBIN TIME 12.3 SECS (9.5-12.5)
[2024-08-29] VITALS (29 sets, daily range): BP systolic 125–166; PULSE 83–104; RESP 12–28; TEMP 98.2–98.7; O2SAT 93–100
[2024-08-29] MEDS: cefTRIAXone 1 GM in D5W 50 ML IV SCH (08:53)
[2024-08-29] MEDS ORDERED: NALOXONE HCL 0.4 MG/ML AMP (NARCAN) IVP PRN (10:00)
[2024-08-29] MEDS: MULTIVITAMINS TAB 1 TABLET PO ONE (15:15)
[2024-08-29] MEDS: HYDROmorphone 1 MG/ML INJ. CARTRIDGE IVP PRN (15:56)
[2024-08-29 16:06] LABS: ANTI-MITOCHONDRIAL AB <20.0 Units (0.0-20.0); ANTI-SMOOTH MUSCLE AB 6 Units (0-19)
[2024-08-30] VITALS (27 sets, daily range): BP systolic 100–146; PULSE 80–109; RESP 12–36; TEMP 98.4–99.8; O2SAT 86–100
[2024-08-30 07:05] LABS: BASOPHILS # (AUTO) 0.1 K/uL (0.0-0.2); BASOPHILS % (AUTO) 0.3 % (0.0-2.0); EOSINOPHILS # (AUTO) 0.3 K/uL (0.0-0.4); EOSINOPHILS % (AUTO) 1.7 % (0.0-4.0); HEMATOCRIT 32.6 % (36-54); HEMOGLOBIN 10.8 g/dL (14.0-18.0); LYMPHOCYTES # (AUTO) 2.7 K/uL (1.0-5.5); LYMPHOCYTES % (AUTO) 14.6 % (20.5-51.5); MEAN CORPUSCULAR HEMOGLOBIN 28 pg (27-31); MEAN CORPUSCULAR HGB CONC 33 % (32-36); MEAN CORPUSCULAR VOLUME 83 fL (79.0-98.0); MONOCYTES # (AUTO) 1.4 K/uL (0.0-1.0); MONOCYTES % (AUTO) 7.9 % (1.7-9.3); NEUTROPHILS # (AUTO) 13.9 K/uL (1.8-7.7); NEUTROPHILS % (AUTO) 75.5 % (40.0-70.0); PLATELET COUNT (AUTO) 343 K/uL (130-430); RED BLOOD CELL COUNT(AUTO) 3.95 MIL/uL (4.2-6.2); RED CELL DISTRIBUTION WIDTH 12.8 % (9.0-15.0); WHITE BLOOD COUNT (AUTO) 18.4 K/uL (4.8-10.8)
[2024-08-30 07:38] LABS: ALBUMIN 3.8 g/dL (3.4-4.8); CALCIUM 8.8 mg/dL (8.4-11.0); CREATININE 0.64 mg/dL (0.55-1.30); POTASSIUM 4.4 mmol/L (3.5-5.1); TOTAL BILIRUBIN 1.2 mg/dL (0.0-1.0); TOTAL PROTEIN, SERUM 5.9 g/dL (6.4-8.3)
[2024-08-30] MEDS: MULTIVITAMINS TAB 1 TABLET PO SCH (09:01)
[2024-08-30] MEDS: COMMUNICATION ORDER XX ONE (09:15)
[2024-08-30] MEDS: ALBUMIN HUMAN 5% 250 ML IV ONE ×2 (10:36→14:45)
[2024-08-30] MEDS ORDERED: CALCIUM GLUCONATE 1 GM/10 ML VIAL IVP ONE (11:00)
[2024-08-30] MEDS: NS IV ONE (11:51)
[2024-08-30] MEDS: CALCIUM GLUCONATE IV ONE (11:51)
[2024-08-30] MEDS ORDERED: ALBUMIN HUMAN 5% 250 ML IV STA (14:30)
[2024-08-30] MEDS: CALCIUM CARBONATE 500 MG/ TAB.CHEW PO ONE (14:30)
[2024-08-30] MEDS: CALCIUM GLUC 1 GM/100ML-NACL 100 ML IV ONE (14:44)
[2024-08-30] MEDS: NYSTATIN 500,000 UNITS/5 ML UDC PO SCH (18:00)
[2024-08-30] MEDS: LORazepam 2 MG/ML VIAL IVP PRN (20:21)
[2024-08-30] MEDS ORDERED: CALCIUM CARBONATE 500 MG/ TAB.CHEW PO SCH (21:00)
[2024-08-31] VITALS (26 sets, daily range): BP systolic 106–158; PULSE 87–111; RESP 16–48; TEMP 98.2–99.1; O2SAT 90–98
[2024-08-31] MEDS ORDERED: HALOPERIDOL LACTATE 5 MG/ML VIAL IM ONE (03:00)
[2024-08-31] MEDS: HALOPERIDOL LACTATE 5 MG/ML VIAL ONE (03:03)
[2024-08-31 06:46] LABS: BASOPHILS # (AUTO) 0.1 K/uL (0.0-0.2); BASOPHILS % (AUTO) 0.4 % (0.0-2.0); EOSINOPHILS # (AUTO) 0.2 K/uL (0.0-0.4); EOSINOPHILS % (AUTO) 1.1 % (0.0-4.0); HEMATOCRIT 32.2 % (36-54); HEMOGLOBIN 10.8 g/dL (14.0-18.0); LYMPHOCYTES # (AUTO) 2.4 K/uL (1.0-5.5); LYMPHOCYTES % (AUTO) 12.9 % (20.5-51.5); MEAN CORPUSCULAR HEMOGLOBIN 28 pg (27-31); MEAN CORPUSCULAR HGB CONC 33 % (32-36); MEAN CORPUSCULAR VOLUME 83 fL (79.0-98.0); MONOCYTES # (AUTO) 1.7 K/uL (0.0-1.0); MONOCYTES % (AUTO) 9.3 % (1.7-9.3); NEUTROPHILS # (AUTO) 14.2 K/uL (1.8-7.7); NEUTROPHILS % (AUTO) 76.3 % (40.0-70.0); PLATELET COUNT (AUTO) 322 K/uL (130-430); RED CELL DISTRIBUTION WIDTH 12.9 % (9.0-15.0); WHITE BLOOD COUNT (AUTO) 18.6 K/uL (4.8-10.8)
[2024-08-31 08:05] LABS: ALBUMIN 4.3 g/dL (3.4-4.8); CALCIUM 8.8 mg/dL (8.4-11.0); CREATININE 0.73 mg/dL (0.55-1.30); POTASSIUM 4.3 mmol/L (3.5-5.1); TOTAL BILIRUBIN 1.5 mg/dL (0.0-1.0); TOTAL PROTEIN, SERUM 5.7 g/dL (6.4-8.3)
[2024-08-31] MEDS: ATORVASTATIN 10 MG TABLET PO SCH (09:39)
[2024-08-31] MEDS ORDERED: ALPRAZolam 0.25 MG TABLET PO ONE (10:00)
[2024-08-31] MEDS ORDERED: ALPRAZolam 0.25 MG TABLET PO SCH (21:00)
[2024-09-01] VITALS (10 sets, daily range): BP systolic 121–131; PULSE 91–104; RESP 18–28; TEMP 97.5–98.4; O2SAT 94–97
[2024-09-01 10:38] LABS: BASOPHILS # (AUTO) 0.1 K/uL (0.0-0.2); BASOPHILS % (AUTO) 0.7 % (0.0-2.0); EOSINOPHILS # (AUTO) 0.2 K/uL (0.0-0.4); EOSINOPHILS % (AUTO) 1.3 % (0.0-4.0); HEMATOCRIT 33.2 % (36-54); HEMOGLOBIN 11.2 g/dL (14.0-18.0); LYMPHOCYTES # (AUTO) 2.1 K/uL (1.0-5.5); LYMPHOCYTES % (AUTO) 13.4 % (20.5-51.5); MEAN CORPUSCULAR HEMOGLOBIN 28 pg (27-31); MEAN CORPUSCULAR HGB CONC 34 % (32-36); MEAN CORPUSCULAR VOLUME 83 fL (79.0-98.0); MONOCYTES # (AUTO) 1.7 K/uL (0.0-1.0); MONOCYTES % (AUTO) 10.5 % (1.7-9.3); NEUTROPHILS # (AUTO) 11.8 K/uL (1.8-7.7); NEUTROPHILS % (AUTO) 74.1 % (40.0-70.0); PLATELET COUNT (AUTO) 396 K/uL (130-430); RED BLOOD CELL COUNT(AUTO) 3.98 MIL/uL (4.2-6.2)
[2024-09-01 10:59] LABS: ALBUMIN 4.1 g/dL (3.4-4.8); CALCIUM 9.1 mg/dL (8.4-11.0); CREATININE 0.79 mg/dL (0.55-1.30); POTASSIUM 4.4 mmol/L (3.5-5.1); TOTAL BILIRUBIN 1.9 mg/dL (0.0-1.0); TOTAL PROTEIN, SERUM 6.4 g/dL (6.4-8.3)
[2024-09-01 11:07] LABS: ANTI-PARIETAL CELL AB 7.6 Units (0.0-20.0)
[2024-09-01] MEDS: NACL 0.9% 1,000 ML IV SCH (12:06)
[2024-09-01] MEDS: metroNIDAZOLE 250 mg/NS 50 ML IV SCH (22:25)
[2024-09-02] VITALS: BP_SYST 108; PULSE 97; RESP 18; TEMP 98; O2SAT 95
[2024-09-02 06:57] LABS: BASOPHILS # (AUTO) 0.1 K/uL (0.0-0.2); BASOPHILS % (AUTO) 0.6 % (0.0-2.0); EOSINOPHILS # (AUTO) 0.3 K/uL (0.0-0.4); EOSINOPHILS % (AUTO) 2.5 % (0.0-4.0); HEMATOCRIT 30.8 % (36-54); HEMOGLOBIN 10.2 g/dL (14.0-18.0); LYMPHOCYTES # (AUTO) 2.3 K/uL (1.0-5.5); LYMPHOCYTES % (AUTO) 19.8 % (20.5-51.5); MEAN CORPUSCULAR HEMOGLOBIN 28 pg (27-31); MEAN CORPUSCULAR HGB CONC 33 % (32-36); MEAN CORPUSCULAR VOLUME 83 fL (79.0-98.0); MONOCYTES # (AUTO) 1.4 K/uL (0.0-1.0); MONOCYTES % (AUTO) 12.4 % (1.7-9.3); NEUTROPHILS # (AUTO) 7.5 K/uL (1.8-7.7); NEUTROPHILS % (AUTO) 64.7 % (40.0-70.0); PLATELET COUNT (AUTO) 363 K/uL (130-430); RED BLOOD CELL COUNT(AUTO) 3.69 MIL/uL (4.2-6.2); RED CELL DISTRIBUTION WIDTH 13.4 % (9.0-15.0); WHITE BLOOD COUNT (AUTO) 11.6 K/uL (4.8-10.8)
[2024-09-02 07:26] LABS: ALBUMIN 3.4 g/dL (3.4-4.8); CALCIUM 8.7 mg/dL (8.4-11.0); CREATININE 0.71 mg/dL (0.55-1.30); TOTAL BILIRUBIN 1.6 mg/dL (0.0-1.0); TOTAL PROTEIN, SERUM 5.8 g/dL (6.4-8.3)
[2024-09-02 08:00] VITALS: BP_SYST 120; PULSE 104; RESP 16; TEMP 97.7; O2SAT 96
[2024-09-02] MEDS: POLYETHYLENE GLYCOL 3350, 17 GM/ POWD.PACK PO SCH (10:59)
[2024-09-02 11:53] VITALS: O2SAT 97
[2024-09-02 14:43] VITALS: BP_SYST 112; PULSE 104; RESP 18; TEMP 98.1; O2SAT 97
[2024-09-02 16:00] VITALS: BP_SYST 124; PULSE 88; RESP 16; TEMP 98.3; O2SAT 97
[2024-09-02] MEDS ORDERED: OXYCODONE/ACETAMINOPHEN *10*mg/325 mg TABLET PO PRN (18:30)
[2024-09-02 20:00] VITALS: BP_SYST 112; PULSE 98; RESP 16; TEMP 98.4; O2SAT 95
[2024-09-03] VITALS (7 sets, daily range): BP systolic 109–148; PULSE 85–101; RESP 16–18; TEMP 97.4–99.1; O2SAT 96–99
[2024-09-03 09:39] LABS: BASOPHILS # (AUTO) 0.1 K/uL (0.0-0.2); BASOPHILS % (AUTO) 0.8 % (0.0-2.0); EOSINOPHILS # (AUTO) 0.2 K/uL (0.0-0.4); HEMATOCRIT 30.4 % (36-54); HEMOGLOBIN 10.2 g/dL (14.0-18.0); LYMPHOCYTES # (AUTO) 1.9 K/uL (1.0-5.5); LYMPHOCYTES % (AUTO) 18.1 % (20.5-51.5); MEAN CORPUSCULAR HEMOGLOBIN 28 pg (27-31); MEAN CORPUSCULAR HGB CONC 34 % (32-36); MEAN CORPUSCULAR VOLUME 84 fL (79.0-98.0); MONOCYTES # (AUTO) 1.2 K/uL (0.0-1.0); MONOCYTES % (AUTO) 12.1 % (1.7-9.3); NEUTROPHILS # (AUTO) 6.9 K/uL (1.8-7.7); PLATELET COUNT (AUTO) 369 K/uL (130-430); RED BLOOD CELL COUNT(AUTO) 3.61 MIL/uL (4.2-6.2); RED CELL DISTRIBUTION WIDTH 13.3 % (9.0-15.0); WHITE BLOOD COUNT (AUTO) 10.4 K/uL (4.8-10.8)
[2024-09-03 10:10] LABS: ALBUMIN 3.5 g/dL (3.4-4.8); CALCIUM 8.9 mg/dL (8.4-11.0); CREATININE 0.71 mg/dL (0.55-1.30); POTASSIUM 4.1 mmol/L (3.5-5.1); TOTAL BILIRUBIN 1.4 mg/dL (0.0-1.0); TOTAL PROTEIN, SERUM 6.3 g/dL (6.4-8.3)
[2024-09-03] MEDS ORDERED: GADOBENATE DIMEGLUMINE 529 MG/ML, 5 ML VIAL IV ONE (10:20)
[2024-09-03] MEDS: HYDROcodone/ACETAMIN 10-325 MG TAB PO PRN (16:31)
[2024-09-03] MEDS: traZODone HCL 50 MG TABLET (DESYREL) PO SCH (23:32)
[2024-09-04] VITALS (10 sets, daily range): BP systolic 114–133; PULSE 67–103; RESP 16–18; TEMP 97.6–98.8; O2SAT 94–99
[2024-09-04 06:26] LABS: BASOPHILS # (AUTO) 0.1 K/uL (0.0-0.2); BASOPHILS % (AUTO) 0.7 % (0.0-2.0); EOSINOPHILS # (AUTO) 0.2 K/uL (0.0-0.4); EOSINOPHILS % (AUTO) 2.2 % (0.0-4.0); HEMATOCRIT 30.2 % (36-54); LYMPHOCYTES # (AUTO) 2.2 K/uL (1.0-5.5); LYMPHOCYTES % (AUTO) 20.1 % (20.5-51.5); MEAN CORPUSCULAR HEMOGLOBIN 28 pg (27-31); MEAN CORPUSCULAR HGB CONC 33 % (32-36); MEAN CORPUSCULAR VOLUME 84 fL (79.0-98.0); MONOCYTES # (AUTO) 1.2 K/uL (0.0-1.0); MONOCYTES % (AUTO) 11.3 % (1.7-9.3); NEUTROPHILS # (AUTO) 7.1 K/uL (1.8-7.7); NEUTROPHILS % (AUTO) 65.7 % (40.0-70.0); PLATELET COUNT (AUTO) 375 K/uL (130-430); RED BLOOD CELL COUNT(AUTO) 3.61 MIL/uL (4.2-6.2); RED CELL DISTRIBUTION WIDTH 13.5 % (9.0-15.0); WHITE BLOOD COUNT (AUTO) 10.9 K/uL (4.8-10.8)
[2024-09-04 07:13] LABS: ALBUMIN 3.2 g/dL (3.4-4.8); CALCIUM 8.7 mg/dL (8.4-11.0); CREATININE 0.65 mg/dL (0.55-1.30); POTASSIUM 4.1 mmol/L (3.5-5.1); TOTAL BILIRUBIN 1.2 mg/dL (0.0-1.0); TOTAL PROTEIN, SERUM 5.9 g/dL (6.4-8.3)
[2024-09-04 08:07] LABS: CEA 1.2 ng/mL (0.0-4.7)
[2024-09-04] MEDS: MIDAZOLAM HCL 5 MG/5 ML VIAL ONE (13:31)
[2024-09-04] MEDS: fentaNYL CITRATE/PF 100 MCG/2 ML AMP ONE (13:31)
[2024-09-04] MEDS ORDERED: LIDOCAINE 1%, 20 ML MDV 20 ML ONE (14:23)
[2024-09-04] MEDS ORDERED: PRO40 PO (15:52)
[2024-09-04] MEDS ORDERED: LOSA-413 PO (15:52)
[2024-09-04] MEDS ORDERED: TRAZ-250 PO (15:52)
[2024-09-04] MEDS ORDERED: MULT400T13 PO (15:52)
[2024-09-04] MEDS ORDERED: LYR25 PO (15:52)
[2024-09-04] MEDS ORDERED: METO-306 PO (15:52)
[2024-09-04] MEDS ORDERED: ASA81 PO (15:52)
[2024-09-04] MEDS ORDERED: ACET325T PO (15:52)
[2024-09-04] MEDS ORDERED: Lidocaine Patch 5% TP (15:52)
[2024-09-04] MEDS ORDERED: DOCU-144 PO (15:52)
[2024-09-04] MEDS ORDERED: POLY17PO4 PO (15:52)
[2024-09-04] MEDS ORDERED: HYDR-3917 PO (15:57)
== END 2024-09-05 23:00 | DRG 49 ==
LOC: SED 22:15 → STU 08-17 00:42 → SIC 08-24 07:59 → STU 08-31 20:00 → SMU 09-01 11:32 → UNDODISIN 09-04 23:00
PROVIDERS: ADMIT Family Medicine; ATTEND Family Medicine
PROC: 02HV33Z Insertion of Infusion Device into Superior Vena Cava, Percutaneous Approach (ICD-10-PCS; 2024-08-20)
PROC: B548ZZA Ultrasonography of Superior Vena Cava, Guidance (ICD-10-PCS; 2024-08-20)
PROC: 5A09457 Assistance with Respiratory Ventilation, 24-96 Consecutive Hours, Continuous Positive Airway Pressure (ICD-10-PCS; 2024-08-24)
PROC: 5A0935A Assistance with Respiratory Ventilation, Less than 24 Consecutive Hours, High Flow/Velocity Cannula (ICD-10-PCS; 2024-08-25)
PROC: 5A0935A Assistance with Respiratory Ventilation, Less than 24 Consecutive Hours, High Flow/Velocity Cannula (ICD-10-PCS; 2024-08-26)
PROC: 5A09357 Assistance with Respiratory Ventilation, Less than 24 Consecutive Hours, Continuous Positive Airway Pressure (ICD-10-PCS; 2024-08-26)
PROC: 5A0935A Assistance with Respiratory Ventilation, Less than 24 Consecutive Hours, High Flow/Velocity Cannula (ICD-10-PCS; 2024-08-27)
PROC: 5A09357 Assistance with Respiratory Ventilation, Less than 24 Consecutive Hours, Continuous Positive Airway Pressure (ICD-10-PCS; 2024-08-27)
PROC: 5A0935A Assistance with Respiratory Ventilation, Less than 24 Consecutive Hours, High Flow/Velocity Cannula (ICD-10-PCS; 2024-08-28)
PROC: 05HA33Z Insertion of Infusion Device into Left Brachial Vein, Percutaneous Approach (ICD-10-PCS; 2024-08-29)
PROC: 5A0935A Assistance with Respiratory Ventilation, Less than 24 Consecutive Hours, High Flow/Velocity Cannula (ICD-10-PCS; 2024-08-29)
PROC: 0HB7XZX Excision of Abdomen Skin, External Approach, Diagnostic (ICD-10-PCS; principal; 2024-09-05)
DX: G61.0 Guillain-Barre syndrome (principal); J96.01 Acute respiratory failure with hypoxia; J69.0 Pneumonitis due to inhalation of food and vomit; K85.90 Acute pancreatitis without necrosis or infection, unspecified; C25.9 Malignant neoplasm of pancreas, unspecified; G45.9 Transient cerebral ischemic attack, unspecified; B96.1 Klebsiella pneumoniae [K. pneumoniae] as the cause of diseases classified elsewhere; I24.89 Other forms of acute ischemic heart disease; I10 Essential (primary) hypertension; N39.0 Urinary tract infection, site not specified; E78.00 Pure hypercholesterolemia, unspecified; D64.9 Anemia, unspecified; R74.01 Elevation of levels of liver transaminase levels; E87.6 Hypokalemia; K59.00 Constipation, unspecified; Z79.899 Other long term (current) drug therapy; Z68.33 Body mass index [BMI] 33.0-33.9, adult
CPT/HCPCS: 36415; 36600; 70450-TC; 70551; 71045; 71275; 72148; 74160; 74183; 76700; 77012; 80048; 80053; 80061; 80074; 80076; 80307; 81000; 81001; 81003; 81015; 82378; 82550; 82803; 82948; 83605; 83690; 84439; 84443; 84484; 85025; 85379; 85384; 85610; 85651; 85730; 86301; 86431; 86788; 86789; 86900; 86901; 87040; 87086; 87186; 88160; 88305; 92610-GN; 93005; 93306; 94010; 94070; 94150; 94640; 94660; 94760; 97110-GP; 97112-GP; 97530-GP; 99285; A9577; G0378; J0360; J0612; J0696; J1171; J1561; J1630; J1644; J1650; J1885; J2003; J2060; J2250; J2270; J2310; J2405; J2470; J2543; J2930; J2997; J3010; J3490; J7030; J7040; J7050; J7060; J8597; P9041; Q9967